=== PATIENT | male | born 1940 | race Caucasian/White ===

== ENCOUNTER 2022-09-25 10:18 | Emergency (ER) | payer OTHER ==
[~2022-09-25] VITALS: Ht 177.8 cm; Wt 76.7 kg
--- NOTE | 2022-09-25 10:30 | NUR ---
C/O PAIN AND DIRK AND REDWANDA ON LT UMP
--- NOTE | 2022-09-25 10:35 | NUR ---
[facility]
--- NOTE | 2022-09-25 11:01 | NUR ---
SEEN BY DR. FAGAN
--- NOTE | 2022-09-25 11:10 | NUR ---
[facility] # [id number]
[2022-09-25] MEDS ORDERED: LIDOCAINE 0.5% HCL 50 ML VIAL ONE (11:29)
[2022-09-25] MEDS ORDERED: LIDOCAINE 1% INJ 50 ML MDV IJ ONE (11:30)
[2022-09-25] MEDS: LIDOCAINE 1% INJ 50 ML MDV IJ ONE ×2 (11:31→11:32)
--- NOTE | 2022-09-25 12:35 | NUR ---
WATHING FOR SUTURE TO BE DONE AT BED SIDE
--- NOTE | 2022-09-25 13:00 | NUR ---
RESTING AND COMFORTALE NO PAIN NOTED
--- NOTE | 2022-09-25 13:15 | NUR ---
Marielena iglesias in [facility] - 09/25/22 at 1436 by TALIB RWESTING AND COMFORTABLE AT THIS TIME
--- NOTE | 2022-09-25 14:27 | NUR ---
DR. COONEY AT BED SIDE FOR I&D WAS VERBLEYLY CONCENTED BY PT AND
[2022-09-25] MEDS ORDERED: HYDR-4209 PO (14:40)
--- NOTE | 2022-09-25 15:20 | NUR ---
INSTRECTED PT AND MARCELLA TO CHANGE DRESSING BY MARIANNE TOBACCO FLAVORER # [id number]
--- NOTE | 2022-09-25 15:21 | NUR ---
Patient discharged to home in stable condition. Written and verbal after care instructions given. Patient verbalizes understanding of instruction.
--- NOTE | 2022-09-25 15:22 | NUR ---
GIVE PT EXRADRESSING TO CHANGE AT HOME
[2022-09-25 15:31] VITALS: BP 148/87; TEMP 98; O2SAT 97
== END 2022-09-25 15:32 | disposition home or self-care (01) ==
LOC: ER 10:18
DX: M10.021 Idiopathic gout, right elbow (principal); M06.9 Rheumatoid arthritis, unspecified; M19.90 Unspecified osteoarthritis, unspecified site
CPT/HCPCS: 99285; 10060; J3490; A6403; A6407

== ENCOUNTER 2022-09-30 12:44 | Emergency (ER) | payer OTHER ==
[~2022-09-30 12:44] MED LIST: HYDR-4209 PO
--- NOTE | 2022-09-30 13:15 | NUR ---
dr alexandra at bedside for eval
--- NOTE | 2022-09-30 13:18 | NUR ---
pt came in due to swollen lt thumb, s/p incision of gout 5 days ago er soshalini. not seen any surgeon yet as per advised by er
[2022-09-30] MEDS ORDERED: KETOROLAC TROMETHAMINE INJ 30 MG/ML VIAL ONE (13:22)
[2022-09-30] MEDS ORDERED: CEPHALEXIN MONOHYDRATE 500 MG CAPSULE PO ONE (13:22)
[2022-09-30] MEDS: KETOROLAC TROMETHAMINE INJ 60 MG/2 ML VIAL IM ONE (13:27)
[2022-09-30] MEDS: CEPHALEXIN MONOHYDRATE 500 MG CAPSULE PO ONE (13:28)
[2022-09-30] MEDS ORDERED: CEPH500C2 PO (13:31)
== END 2022-09-30 14:28 | disposition home or self-care (01) ==
LOC: ER 12:53
DX: M79.645 Pain in left finger(s) (principal); Z79.899 Other long term (current) drug therapy
CPT/HCPCS: 99283; 96372; J1885